=== PATIENT | male | born 1985 | race Caucasian/White ===

== ENCOUNTER 2017-11-20 17:01 | Emergency (ER) | payer OTHER ==
[~2017-11-20] VITALS: Ht 162.6 cm; Wt 70.8 kg
[2017-11-20 17:06] VITALS: Ht 162.6 cm; Wt 70.8 kg
[2017-11-20 18:30] VITALS: BP 125/85
== END 2017-11-20 18:30 | disposition home or self-care (01) ==
LOC: ED 17:01
DX: A64 Unspecified sexually transmitted disease (principal); R03.0 Elevated blood-pressure reading, without diagnosis of hypertension
CPT/HCPCS: 87491; 87591; J0696